=== PATIENT | female | born 1930 | race Caucasian/White ===

== ENCOUNTER 2019-02-01 12:43 | Inpatient (IN) | payer MEDICARE, OTHER ==
[~2019-02-01] VITALS: Ht 167.6 cm; Wt 63.5 kg
[2019-02-01] MEDS ORDERED: VALS160T2 PO (13:00)
[2019-02-01] MEDS ORDERED: ASPI-605 PO (13:00)
[2019-02-01] MEDS ORDERED: AMLO5TAB9 PO (13:00)
[2019-02-01] MEDS ORDERED: CEPH500C2 PO (13:00)
[2019-02-01] MEDS ORDERED: ALBU8.5H8 IH (13:00)
[2019-02-01] MEDS ORDERED: LEVO50TA8 PO (13:00)
[2019-02-01] MEDS ORDERED: LEVO100T10 PO (13:00)
[2019-02-01] MEDS ORDERED: OXYB5TAB11 PO (13:00)
[2019-02-01] MEDS ORDERED: CLOP75TA15 PO (13:00)
--- NOTE | 2019-02-01 13:50 | NUR ---
PT WAS EVALUATED BY DR GONZALEZ. PT WAS TRANSFERED TO ROOM #145A U. REPORT WAS GIVEN TO MHU RN.
[2019-02-01] MEDS ORDERED: ZOLPIDEM 5 MG TABLET PO PRN (14:45)
[2019-02-01] MEDS ORDERED: MAG HYDROX/AL HYDROX/SIMETH 30 ML LIQUID UDC PO PRN (14:45)
[2019-02-01] MEDS ORDERED: LORAZEPAM 0.5 MG TABLET PO PRN (14:45)
[2019-02-01] MEDS ORDERED: MAGNESIUM HYDROXIDE 30 ML LIQUID UDC PO PRN (14:45)
[2019-02-01 15:12] LABS: BASOPHILS % (AUTO) 0.7 % (0.0-2.0); EOSINOPHILS % (AUTO) 0.1 % (0.0-7.0); HEMOGLOBIN 11.6 g/dL (10.9-14.3); LYMPHOCYTES # (AUTO) 0.9 K/uL (20.0-40.0); MEAN CORPUSCULAR HEMOGLOBIN 27.1 uug (24.7-32.8); MEAN CORPUSCULAR HGB CONC 32 g/dL (32.3-35.6); MEAN CORPUSCULAR VOLUME 84.1 fL (75.5-95.3); MONOCYTES # (AUTO) 0.4 K/uL (2.0-10.0); MONOCYTES % (AUTO) 6.9 % (0.0-11.0); NEUTROPHILS # (AUTO) 4.1 K/uL (1.8-8.9); NEUTROPHILS % (AUTO) 75.3 % (38.5-71.5); PLATELET COUNT (AUTO) 190 K/uL (179-408); RED BLOOD CELL COUNT(AUTO) 4.28 MIL/uL (3.63-4.92); WHITE BLOOD COUNT (AUTO) 5.4 K/uL (3.8-11.8)
[2019-02-01 15:19] LABS: CARBON DIOXIDE 25 mmol/L (21-32); CHLORIDE 100 mmol/L (98-107); CREATININE 0.9 mg/dL (0.6-1.3); GLUCOSE 127 mg/dL (74-106); POTASSIUM 3.9 mmol/L (3.5-5.1); UREA NITROGEN, BLOOD 10 mg/dL (7-18)
[2019-02-01 15:25] LABS: ALANINE AMINOTRANSFERASE 25 U/L (14-59); ALKALINE PHOSPHATASE 82 U/L (50-136); ASPARTATE AMINOTRANSFERASE 16 U/L (15-37); BILIRUBIN,TOTAL 0.9 mg/dL (0.2-1.0); MAGNESIUM 1.9 mg/dL (1.8-2.4); PHOSPHOROUS 3.6 mg/dL (2.5-4.9); TOTAL PROTEIN, SERUM 7.4 g/dL (6.4-8.2)
[2019-02-01 16:00] VITALS: BP 152/63
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
--- NOTE | 2019-02-01 18:35 | NUR ---
Gps/Market Research Coordinator- Patient's coy Sherwood called was informed of patient's admission to the MHU.
--- NOTE | 2019-02-01 18:50 | NUR ---
Gps/Grain Oilseed Or Pasture Farm Worker- OOB to alonzo-chair, pt. was trying to get oob per TERADATA DEVELOPER, bed alarm on, safety reviewed and emphasized. Patient was able to talked to her son Presley, and claimed ok to give information to her son Harvey , and eldest son Ruslan.Per Presley(son) staff or Doctor can call him anytime , and willing to assist and provide history/informations about her Mother.Presley(son) also claimed patient is a smoker, smoked 1 pack of cigarette/day .Patient denies smoking during admission .
--- NOTE | 2019-02-01 19:20 | NUR ---
PT PLEASANT WHEN APPROACH. PT NO S.I. PT IN NO ACUTE DISTRESS. SAFETY AND COMFORT PROVIDED. WILL CONTINUE TO MONITOR.
[2019-02-01 20:20] VITALS: BP 123/75
[2019-02-01] MEDS ORDERED: ALBUTEROL SULFATE 8 GM HFA.AER.AD IH PRN (20:30)
[2019-02-01] MEDS ORDERED: ALBUTEROL SULFATE 2.5 MG/3 ML NEBU NEB PRN (20:30)
[2019-02-01] MEDS: VALSARTAN 160 MG TABLET PO SCH (21:00)
[2019-02-01] MEDS ORDERED: VALSARTAN 80 MG TABLET ONE (22:08)
[2019-02-02] MEDS: LEVOTHYROXINE SODIUM 50 MCG TABLET PO SCH (06:06)
--- NOTE | 2019-02-02 06:41 | NUR ---
PT SLEPT 8.3 HOURS. PT SHOWS NO ACUTE DISTRESS. PT COMPLIANT WITH CARE. PRESCRIBED MEDICATION GIVEN AND PT TOLERATED IT WELL. PT REFUSED HER DIOVAN BECAUSE SHE IS SO SLEEPY. SAFETY AND COMFORT PROVIDED. PT HAD EPISODE OF CONFUSION , NEEDS REORIENTATION AND REDIRECTION. WILL ENDORSE ACCORDINGLY TO INCOMING NURSE FOR CONTINUITY OF CARE.
[2019-02-02 07:30] VITALS: BP 139/66
[2019-02-02] MEDS: CLOPIDOGREL 75 MG TABLET PO SCH (08:40)
[2019-02-02] MEDS: ASPIRIN EC 81 MG TABLET.DR PO SCH (08:40)
[2019-02-02] MEDS: AMLODIPINE 5 MG TABLET PO SCH ×2 (08:40→16:27)
[2019-02-02] MEDS: VALSARTAN 160 MG TABLET PO SCH ×2 (08:41→21:00)
[2019-02-02] MEDS: OXYBUTYNIN CHLORIDE 5 MG TABLET PO SCH (08:41)
[2019-02-02] MEDS: VENLAFAXINE XR 37.5 MG CAP.SR.24H PO SCH (10:15)
--- NOTE | 2019-02-02 11:10 | NUR ---
PT REFUSED EFFEXOR AT THIS TIME. STATES "PLEASE, WHY DON'T YOU TELL THE DOCTOR TO GO TO HELL." WILL ATTEMPT AT A LATER TIME.
--- NOTE | 2019-02-02 12:20 | NUR ---
Preliminary Discharge Plan/Discharge needs: Pt currently lives with her at [address] [facility] [address], [place] [address]; [phone]. Per pt, she is ambulatory with a cane but is in severe pain from her knee injury making it difficult for her to move around on her own. Pt. would like to return to her home. channel worker will plan to discuss placement options with pt for discharge planning. channel worker will continue to work on a safe and proper discharge plan for pt.
[2019-02-02 16:00] VITALS: BP 133/69
[2019-02-02 19:52] VITALS: BP 143/70
[2019-02-02] MEDS: ACETAMINOPHEN 325 MG TABLET PO PRN (19:58)
[2019-02-03] MEDS: LEVOTHYROXINE SODIUM 100 MCG TABLET PO SCH (06:46)
[2019-02-03 07:30] VITALS: BP 131/64
[2019-02-03] MEDS: ASPIRIN EC 81 MG TABLET.DR PO SCH (08:35)
[2019-02-03] MEDS: CLOPIDOGREL 75 MG TABLET PO SCH (08:35)
[2019-02-03] MEDS: VALSARTAN 160 MG TABLET PO SCH ×2 (08:35→20:37)
[2019-02-03] MEDS: OXYBUTYNIN CHLORIDE 5 MG TABLET PO SCH (08:35)
[2019-02-03] MEDS: VENLAFAXINE XR 37.5 MG CAP.SR.24H PO SCH (08:35)
[2019-02-03] MEDS: AMLODIPINE 5 MG TABLET PO SCH ×2 (08:36→17:30)
[2019-02-03] MEDS: ACETAMINOPHEN 325 MG TABLET PO PRN (08:56)
--- NOTE | 2019-02-03 14:22 | NUR ---
Gps/Information Support Project Manager- Patient completed course of antibiotic tx. Patient has medications at home(Atorvastatin, xalatan eye gtt. at home) , no prescription needed from Medical Doctor. Reviewed discharge instructions, patient verbalized understanding. Addendum: 02/03/19 at 1635 by SIMRAN WILHELM LVN Error in charting wrong patient
[2019-02-03 16:18] VITALS: BP 124/68
--- NOTE | 2019-02-03 16:36 | NUR ---
Gps/Sign Wirer- Patient noted to be compliant with her routine mediciations this am, reviewed with patient, verbalized understanding. Patient was able to talked to her .
[2019-02-03 19:48] VITALS: BP 98/53
--- NOTE | 2019-02-03 20:00 | NUR ---
RECEIVED PATIENT TO CARE IN HER ROOM IN BED, SHE IS NOTED AWAKE A/O X 3. SHE IS CALM AND PLEASANT UPON APPROACHED. SHE DENIES SI AND SHE IS ABLE TO CFS. V/S STABLE, PATIENT C/O MILD LEFT KNEE PAIN. TYLENOL 650 MG POP RN WAS OFFERED; HOWEVER, PT DECLINED IT. SHE INSTEAD ASKED FOR ICE PACK. A SMALL ICE PACK WAS PROVIDED. PATIENT WAS REASSURED FOR HER SAFETY. WILL CONTINUE TO MONITOR.
[2019-02-04] MEDS: LEVOTHYROXINE SODIUM 100 MCG TABLET PO SCH (06:24)
[2019-02-04 07:30] VITALS: BP 136/68
[2019-02-04] MEDS: AMLODIPINE 5 MG TABLET PO SCH ×2 (08:45→17:16)
[2019-02-04] MEDS: VENLAFAXINE XR 37.5 MG CAP.SR.24H PO SCH (08:45)
[2019-02-04] MEDS: ASPIRIN EC 81 MG TABLET.DR PO SCH (08:45)
[2019-02-04] MEDS: CLOPIDOGREL 75 MG TABLET PO SCH (08:45)
[2019-02-04] MEDS: VALSARTAN 160 MG TABLET PO SCH ×2 (08:46→20:10)
[2019-02-04] MEDS: OXYBUTYNIN CHLORIDE 5 MG TABLET PO SCH (08:46)
[2019-02-04] MEDS: ACETAMINOPHEN 325 MG TABLET PO PRN ×2 (12:03→20:10)
--- NOTE | 2019-02-04 13:30 | NUR ---
Gps/Surface Mount Technology Operator- Patient stayed up on her alonzo-chair, encouraged patient to stay up on her chair for lunch, patient requesting to be put back to bed, c/o > pain on her lower back requesting ice pack to be applied. Repositioned for comfort. Patient was able to talked to her son Presley this pm.
[2019-02-04 15:13] VITALS: BP 152/72
--- NOTE | 2019-02-04 19:35 | NUR ---
Patient pleasant upon approach, calm, cooperative, engages in appropriate conversation. States feels a little bit better after having pain medication this morning. Bed in low position, locked, side rails up x 2 for safety. Noise and lights subdued. Will continue to monitor.
[2019-02-04 20:11] VITALS: BP 154/64
--- NOTE | 2019-02-05 05:58 | NUR ---
Patient slept well throughout the night. Complained of discomfort bevause of left knee pain which was relieved by prn pain medication. Has been calm and compliant. Prescribed medications were taken. Attended all needs. Ensured safety and comfort.
[2019-02-05] MEDS: LEVOTHYROXINE SODIUM 50 MCG TABLET PO SCH (06:08)
[2019-02-05 07:30] VITALS: BP_SYST 114; BP_SYST 131; BP_DIAS 67; BP_DIAS 69
[2019-02-05] MEDS: AMLODIPINE 5 MG TABLET PO SCH ×2 (08:47→17:00)
[2019-02-05] MEDS: VALSARTAN 160 MG TABLET PO SCH ×2 (08:48→20:46)
[2019-02-05] MEDS: OXYBUTYNIN CHLORIDE 5 MG TABLET PO SCH (08:48)
[2019-02-05] MEDS: CLOPIDOGREL 75 MG TABLET PO SCH (08:48)
[2019-02-05] MEDS: ASPIRIN EC 81 MG TABLET.DR PO SCH (08:48)
[2019-02-05] MEDS: VENLAFAXINE XR 37.5 MG CAP.SR.24H PO SCH (08:51)
[2019-02-05] MEDS: ACETAMINOPHEN 325 MG TABLET PO PRN ×2 (11:25→16:53)
[2019-02-05 15:22] VITALS: BP 112/51
[2019-02-05 20:00] VITALS: BP 140/75
[2019-02-05] MEDS: SENNOSIDES 1 TABLET PO SCH (20:46)
--- NOTE | 2019-02-05 22:00 | NUR ---
received to care, lying in bed, pleasant upon approach. denies SI, or desire to harm self. compliant with medications and staff direction. as of 2199, she appears to be asleep. no distress noted. will continue to monitor closely.
--- NOTE | 2019-02-06 06:00 | NUR ---
slept 6.5 hours total. continues to sleep. no distress noted.
[2019-02-06] MEDS: LEVOTHYROXINE SODIUM 100 MCG TABLET PO SCH (06:13)
[2019-02-06 07:30] VITALS: BP 131/68
[2019-02-06] MEDS: VENLAFAXINE XR 37.5 MG CAP.SR.24H PO SCH (08:15)
[2019-02-06] MEDS: CLOPIDOGREL 75 MG TABLET PO SCH (08:15)
[2019-02-06] MEDS: ASPIRIN EC 81 MG TABLET.DR PO SCH (08:15)
[2019-02-06] MEDS: AMLODIPINE 5 MG TABLET PO SCH ×2 (08:16→16:18)
[2019-02-06] MEDS: OXYBUTYNIN CHLORIDE 5 MG TABLET PO SCH (08:17)
[2019-02-06] MEDS: VALSARTAN 160 MG TABLET PO SCH ×2 (08:17→20:03)
[2019-02-06 16:06] VITALS: BP 111/50
[2019-02-06] MEDS: ACETAMINOPHEN 325 MG TABLET PO PRN (17:30)
--- NOTE | 2019-02-06 18:12 | NUR ---
GPS: RECEIVED PATIENT ALERT ORIENTED X3, PATIENT NEEDS ASSITANCE IN AMBULATION, ABLE TO WALK WITH THE WALKER PATIENT ISOLATIVE AND WITHDRAWN , VERBALIZES IF SHES GOING TO , RE ASSURE PATIENT THAT ABOUT HER CONDITION AND WITH THE TREATMENT PLAN, PATIENT COMPLIANT WITH MEDICATION, DENIES SI AND HI, WILL CONTINUE MONITOR
--- NOTE | 2019-02-06 19:35 | NUR ---
Patient pleasant upon approach, calm, cooperative, engages in appropriate conversation. No complaints of pain at the moment. Patient a little bit anxious because of pacing room mate, patient reassured. Bed in low position, locked, side rails up x 2 for safety. Noise and lights subdued. Will continue to monitor.
[2019-02-06] MEDS: SENNOSIDES 1 TABLET PO SCH (20:03)
[2019-02-06 20:09] VITALS: BP 141/66
--- NOTE | 2019-02-07 05:34 | NUR ---
Patient slept intermittently throughout the night. No complaints made. Has been calm and compliant. Prescribed medications were taken. Attended all needs. Ensured safety and comfort.
[2019-02-07] MEDS: LEVOTHYROXINE SODIUM 50 MCG TABLET PO SCH (06:20)
--- NOTE | 2019-02-07 08:00 | NUR ---
Received patient awake in bed. AAOx4. Pleasant when approached. No aggressive behavior noted. Compliant with care and medications. Later appeared agitated when explaining events occurring previous night. Reported that she had a restless night due to other clients in unit. Denies SI and HI at this time. Will continue to monitor throughout shift.
[2019-02-07] MEDS: ASPIRIN EC 81 MG TABLET.DR PO SCH (08:18)
[2019-02-07] MEDS: VENLAFAXINE XR 37.5 MG CAP.SR.24H PO SCH (08:19)
[2019-02-07] MEDS: CLOPIDOGREL 75 MG TABLET PO SCH (08:19)
[2019-02-07 08:23] VITALS: BP 115/63
[2019-02-07] MEDS: AMLODIPINE 5 MG TABLET PO SCH ×2 (08:24→16:00)
[2019-02-07] MEDS: VALSARTAN 160 MG TABLET PO SCH ×2 (08:24→20:35)
[2019-02-07] MEDS: OXYBUTYNIN CHLORIDE 5 MG TABLET PO SCH (08:25)
[2019-02-07 15:35] VITALS: BP 118/60
[2019-02-07] MEDS: SENNOSIDES 1 TABLET PO SCH (20:35)
[2019-02-07 20:42] VITALS: BP 121/65
--- NOTE | 2019-02-08 06:00 | NUR ---
slept 7 hours total. no distress noted.
[2019-02-08] MEDS: LEVOTHYROXINE SODIUM 100 MCG TABLET PO SCH (06:41)
[2019-02-08 07:30] VITALS: BP 127/68
[2019-02-08] MEDS: ASPIRIN EC 81 MG TABLET.DR PO SCH (08:43)
[2019-02-08] MEDS: VENLAFAXINE XR 37.5 MG CAP.SR.24H PO SCH (08:43)
[2019-02-08] MEDS: CLOPIDOGREL 75 MG TABLET PO SCH (08:43)
[2019-02-08] MEDS: VALSARTAN 160 MG TABLET PO SCH ×2 (08:44→20:55)
[2019-02-08] MEDS: OXYBUTYNIN CHLORIDE 5 MG TABLET PO SCH (08:44)
[2019-02-08] MEDS: AMLODIPINE 5 MG TABLET PO SCH ×2 (08:44→16:53)
[2019-02-08 16:00] VITALS: BP 133/62
--- NOTE | 2019-02-08 17:00 | NUR ---
Gps/Single Needle Tufting Machine Operator- Patients' son Harvey in to visit , wants to know discharge plan and discharge date, wants to talk to SW , left his contact numbers.
--- NOTE | 2019-02-08 17:06 | NUR ---
Gps/Director Cardiology- Per patient discharge planning for tomorrow, verbalized feelings of being happy . Ind. with her wheel chair propulsion, ind. wheel chair mobility.moved to room 140 -A
[2019-02-08 19:30] VITALS: BP 115/43
[2019-02-08] MEDS: SENNOSIDES 1 TABLET PO SCH (20:55)
[2019-02-09] MEDS: LEVOTHYROXINE SODIUM 50 MCG TABLET PO SCH (06:16)
--- NOTE | 2019-02-09 07:12 | NUR ---
slept 6.5 hours. is now awake. assisted with am care, and shower. no distress noted.
[2019-02-09 07:30] VITALS: BP 121/65
[2019-02-09] MEDS: OXYBUTYNIN CHLORIDE 5 MG TABLET PO SCH (08:51)
[2019-02-09] MEDS: ASPIRIN EC 81 MG TABLET.DR PO SCH (08:51)
[2019-02-09] MEDS: VENLAFAXINE XR 37.5 MG CAP.SR.24H PO SCH (08:51)
[2019-02-09] MEDS: VALSARTAN 160 MG TABLET PO SCH (08:53)
[2019-02-09] MEDS: CLOPIDOGREL 75 MG TABLET PO SCH (08:54)
[2019-02-09] MEDS: AMLODIPINE 5 MG TABLET PO SCH (08:54)
--- NOTE | 2019-02-09 13:43 | NUR ---
Discharge Note: Patient will be discharged to [facility] [[address], [address]; ]. Patient is A&Ox4, denies suicidal ideation, and is able to plan for self-care. Cloth Burler spoke with Jazzy, Biochemistry Teacher, who stated patient will be accepted at facility today. Patient cotton picker operator is arranged for today at 4:00pm by facility. Patient aware and agreeable with discharge plan. Patient will follow up with Dr. Garcia, Undertaker Helper and Dr. Finley, Psychiatrist at [facility]. Patient was provided additional mental health referrals for the [facility] [ ] and the National Suicide Prevention Lifeline . Patient was provided a brief substance abuse intervention and was provided outpatient referrals for [facility] [[phone]], [facility] [[phone]], and [facility] [[phone]].
--- NOTE | 2019-02-09 15:35 | NUR ---
Gps/Seismograph Operator- Called [facility], report given to Loren admitting Nurse. Patient and son Sherwood Gary was well informed of the dc. plan. extrusion supervisor time was arranged at 1600 , transportation will be provided by the [facility].
[2019-02-09 15:53] VITALS: BP 109/48
--- NOTE | 2019-02-09 16:13 | NUR ---
Gps/Power Equipment Mechanics Instructor- Discharged via private transportation , provided by [facility] .Patient in good spirit, all belongings given back to patient(eye glasses, dentures uper and lower dentures, slippers, ring w/ white stone, nightgown printed) No complaints noted .
--- NOTE | 2019-02-12 16:20 | NUR ---
Firearms Report: Kicking Machine Operator completed and submitted a [facility] firearms report for 5150 DTS certification. A copy of report has been placed in patient chart.
== END 2019-02-09 16:21 | DRG 885 ==
LOC: ER 12:43 → GPS 13:18
PROVIDERS: ADMIT Psychiatry & Neurology Psychiatry; ATTEND Nurse Practitioner Acute Care
DX: F33.2 Major depressive disorder, recurrent severe without psychotic features (principal); M06.9 Rheumatoid arthritis, unspecified; J44.9 Chronic obstructive pulmonary disease, unspecified; Z86.73 Personal history of transient ischemic attack (TIA), and cerebral infarction without residual deficits; Z90.710 Acquired absence of both cervix and uterus; Z88.0 Allergy status to penicillin; Z88.8 Allergy status to other drugs, medicaments and biological substances; Z91.011 Allergy to milk products; Z91.5 Personal history of self-harm; Z79.02 Long term (current) use of antithrombotics/antiplatelets; E88.09 Other disorders of plasma-protein metabolism, not elsewhere classified; R01.1 Cardiac murmur, unspecified; M19.90 Unspecified osteoarthritis, unspecified site
CPT/HCPCS: 36415; 83735; 84100; 85025; 97110; 97112; 97116; 97530; A4663